=== PATIENT | female | born 1955 | race Hispanic/Latino ===

== ENCOUNTER → 2022-06-06 | Outpatient (CLI) | payer MEDICARE | LOC: MRI 09:06 | PROVIDERS: ATTEND Physician Assistant | DX: S46.012A Strain of muscle(s) and tendon(s) of the rotator cuff of left shoulder, initial encounter (principal) ==

== ENCOUNTER → 2022-09-13 | Outpatient (RCR) | payer MEDICARE ==
[~2022-09-13] MED LIST: ALENDRONATE SOD70 MG PO; ASPIRIN EC81 MG PO; BENICAR5 MG PO; MELOXICAM7.5 MG PO; METFORMIN HCL500 MG PO; OMEPRAZOLE40 MG PO; TIZANIDINE HCL4 MG PO
== END ==
LOC: PT 08-17 10:07
PROVIDERS: ATTEND Physician Assistant
DX: Z47.89 Encounter for other orthopedic aftercare (principal); S46.012D Strain of muscle(s) and tendon(s) of the rotator cuff of left shoulder, subsequent encounter

== ENCOUNTER → 2022-10-14 | Outpatient (RCR) | payer MEDICARE | LOC: PT 09-16 07:44 | PROVIDERS: ATTEND Physician Assistant | DX: Z47.89 Encounter for other orthopedic aftercare (principal); S46.012D Strain of muscle(s) and tendon(s) of the rotator cuff of left shoulder, subsequent encounter ==

== ENCOUNTER 2022-11-11 11:00 | Outpatient (RCR) | payer MEDICARE | END 2022-11-13 | LOC: PT 11:00 | PROVIDERS: ATTEND Physician Assistant | DX: Z47.89 Encounter for other orthopedic aftercare (principal); S46.012D Strain of muscle(s) and tendon(s) of the rotator cuff of left shoulder, subsequent encounter ==

== ENCOUNTER 2022-12-02 13:00 | Outpatient (RCR) | payer MEDICARE | END 2022-12-14 | LOC: PT 13:00 | PROVIDERS: ATTEND Physician Assistant | DX: Z47.89 Encounter for other orthopedic aftercare (principal); S46.012D Strain of muscle(s) and tendon(s) of the rotator cuff of left shoulder, subsequent encounter ==